=== PATIENT | female | born 1980 | race Two or more races ===

== ENCOUNTER 2017-11-24 09:57 | Emergency (ER) | payer SELFPAY ==
[2017-11-24 10:12] VITALS: BMI 32.9
[2017-11-24 10:16] VITALS: BP 125/88; PULSE 122; RESP 20; TEMP 100.5; O2SAT 100
== END 2017-11-24 10:13 | disposition left against medical advice (07) ==
LOC: C.ER 09:57
DX: Z02.89 Encounter for other administrative examinations (principal); N76.0 Acute vaginitis